=== PATIENT | male | born 1995 | race Caucasian/White ===

== ENCOUNTER 2018-04-01 19:20 | Emergency (ER) | payer BC ==
[2018-04-01 20:31] VITALS: BP 134/90
--- NOTE | 2018-04-02 00:57 | ED ---
Mike Ramirez Jade, scribed for Marty De Leon MD on 04/01/18 at 1946 . Throat Pain/Nasal Congestion - HPI Summary HPI Summary: Pt is a 22 y/o male who presents to the ED c/o dental pain. He states he had 6 teeth pulled today at [facility] at 12:00. Pt had an abscess that was cut in order to be drained that never stopped bleeding. He states hes currently at an 8/10 level pain that feels both aching and throbbing, and began to feel lightheaded. Pt took a Percocet for the pain and antibiotics today. He denies any other medical problems. - History of Current Complaint Chief Complaint: EDDentalPain Time Seen by Provider: 04/01/18 19:35 Hx Obtained From: Patient Onset/Duration: Sudden Onset, Lasting Hours - 12:00, Still Present Severity: Severe - 8/10 Cough: None Related History: Prior ENT Surgery - 6 teeth pulled today - Allergies/Home Medications Allergies/Adverse Reactions: Allergies Allergy/AdvReac Type Severity Reaction Status Date / Time No Known Allergies Allergy Verified 04/01/18 19:24 Home Medications: Home Medications Percocet 5-325 mg Tablet 1 tab PO Q6HR PRN 04/01/18 [History Confirmed 04/01/18] PMH/Surg Hx/FS Hx/Imm Hx Endocrine/Hematology History: Denies: Hx Diabetes Cardiovascular History: Denies: Hx Hypertension Musculoskeletal History: Reports: Other Musculoskeletal History - Ankle sprain Infectious Disease History: No Infectious Disease History: Denies: Traveled Outside the [place] in Last 30 Days - Family History Known Family History: Negative: Diabetes - Social History Alcohol Use: Weekly Substance Use Type: Reports: Marijuana Substance Use Comment - Amount & Last Used: one joint yesterday Hx Tobacco Use: Yes Smoking Status (MU): Current Every Day Smoker Review of Systems Positive: Dental Pain - Bleeding Neurological: Other - Lightheadedness All Other Systems Reviewed And Are Negative: Yes Physical Exam - Summary Physical Exam Summary: VITAL SIGNS: Reviewed. GENERAL: Patient is a well-developed and nourished MALE who is lying comfortable in the stretcher. Patient is not in any acute respiratory distress. HEAD AND FACE: No signs of trauma. No ecchymosis, hematomas or skull depressions. No sinus tenderness. EYES: PERRLA, EOMI x 2, No injected conjunctiva, no nystagmus. EARS: Hearing grossly intact. Ear canals and tympanic membranes are within normal limits. MOUTH: 3 raw areas covered with dark blood. No active bleeding. Very minimal oozing. Over the lower molars. NECK: Supple, trachea is midline, no adenopathy, no JVD, no carotid bruit, no c- spine tenderness, neck with full ROM. CHEST: Symmetric, no tenderness at palpation LUNGS: Clear to auscultation bilaterally. No wheezing or crackles. CVS: Regular rate and rhythm, S1 and S2 present, no murmurs or gallops appreciated. ABDOMEN: Soft, non-tender. No signs of distention. No rebound no guarding, and no masses palpated. Bowel sounds are normal. EXTREMITIES: FROM in all major joints, no edema, no cyanosis or clubbing. NEURO: Alert and oriented x 3. No acute neurological deficits. Speech is normal and follows commands. SKIN: Dry and warm Triage Information Reviewed: Yes Vital Signs On Initial Exam: Initial Vitals Temp Pulse Resp BP Pulse Ox 98.4 F 69 18 138/94 99 04/01/18 19:22 04/01/18 19:22 04/01/18 19:22 04/01/18 19:22 04/01/18 19:22 Vital Signs Reviewed: Yes Diagnostics - Vital Signs Vital Signs Temp Pulse Resp BP Pulse Ox 04/01/18 19:22 98.4 F 69 18 138/94 99 - Laboratory Lab Statement: Any lab studies that have been ordered have been reviewed, and results considered in the medical decision making process. Re-Evaluation - Re-Evaluation First Eval Re-Evaluation Time: 20:11 Change: Improved Comment: No further bleeding. Pt can be discharged with instructions for a soft diet. Pt is to gargle with warm salt water, and to follow up with his dentist. EENT Course/Dx - Course Course Of Treatment: Pt is a 22 y/o male c/o dental pain after having 6 teeth pulled today at 12:00. Pt had an abscess that was cut that never stopped bleeding, and is currently at an 8/10 level pain. A physical exam revealed 3 raw areas covered with dark blood, no active bleeding, and very minimal oozing. A re-eval at 20:11 showed no further bleeding. Pt given instructions for a soft diet. Pt is to gargle with warm salt water, and to follow up with his dentist. Final dx is status post tooth extraction. Pt is discharged home, and is agreeable with the plan. - Diagnoses Provider Diagnoses: Status post tooth extraction Discharge - Sign-Out/Discharge Documenting (check all that apply): Discharge/Admit/Transfer - Discharge - Discharge Plan Condition: Stable Disposition: HOME Patient Education Materials: Tooth Extraction (DC) Referrals: Travis Gordon MD [Medical Doctor] - Additional Instructions: RETURN TO THE EMERGENCY DEPARTMENT FOR CHANGING OR WORSENING SYMPTOMS. Follow a soft diet and gargle with warm salt water. Follow up with your dentist. The documentation as recorded by the Mike villa Jade accurately reflects the service I personally performed and the decisions made by Moises minaya Abdul, MD.
== END 2018-04-01 20:31 | disposition home or self-care (01) ==
LOC: ED 19:20
DX: K08.89 Other specified disorders of teeth and supporting structures (principal); F17.200 Nicotine dependence, unspecified, uncomplicated; Z98.818 Other dental procedure status
CPT/HCPCS: 99282